=== PATIENT | male | born 1980 | race Caucasian/White ===

== ENCOUNTER 2017-04-15 18:45 | Emergency (ER) | payer OTHER ==
[~2017-04-15] VITALS: Ht 175.3 cm; Wt 104.5 kg
--- NOTE | 2017-04-15 19:12 | PHYS DOC ---
Past History Past Medical History: No Pertinent History Past Surgical History: No Surgical History Adult General Chief Complaint Chief Complaint: splinter left index finger HPI HPI This is a pleasant 37-year-old male with no other major medical problems who sustained a small visible foreign body in the index finger on the dorsum of his left hand. This injury occurred approximately 3 days ago likely a piece of plywood patient is noted increased localized swelling with serosanguineous clear drainage from the wound he is attempted to explore it with a small knife without much success removing the foreign body. At this juncture his is concerned he may becoming infected. Patient has normal pain with range of motion pain is localized at the site of wound. Patient's immunizations are up-to -date patient has normal other medical complaints at this time. Review of Systems Review of Systems Constitutional: Denies fever or chills [] Musculoskeletal: Denies back pain or joint pain [] Integument: Denies rash or skin lesions [] Neurologic: Denies headache, focal weakness or sensory changes [] Physical Exam Physical Exam Constitutional: Well developed, well nourished, no acute distress, non-toxic appearance. [] Cardiovascular:Heart rate regular rhythm, no murmur [] Lungs & Thorax: Bilateral breath sounds clear to auscultation [] Skin: Warm, dry, erythema to the area of wound on the radial aspect of the index finger on the left hand there is 1 cm x 1 cm area of erythema with mild soft tissue swelling small laceration noted self-inflicted Extremities: No tenderness, no cyanosis, no clubbing, ROM intact, no edema. [] Neurologic: Alert and oriented X 3, normal motor function, normal sensory function, no focal deficits noted. [] Psychologic: Affect normal, judgement normal, mood normal. [] EKG EKG [] Radiology/Procedures Radiology/Procedures [] X-ray of left hand read by me which taken at 1915 p.m. 04/07/2017 demonstrates small soft tissue swelling over the aspect of the radial aspect of the index finger. With no obvious foreign body no radiopaque foreign body no his air. Otherwise normal looking x-ray. Course & Med Decision Making Course & Med Decision Making Pertinent Labs and Imaging studies reviewed. (See chart for details) issue with soft tissue swelling after sustaining a small laceration and splinter into the radial aspect of the left index finger. This occurred 3-4 days ago. Patient has had localized swelling and redness after self-mutilation of the wound in an attempt to remove foreign body. No obvious foreign bodies x-ray felt the patient point patient was concerned had a retained foreign body causing localized infection. His is position and she was concerned about localized infection. After x-ray and wound exploration there is no obvious signs of foreign body based on physical exam there may be something very dentition retained patient was placed on antibiotics with close wound follow-up with primary care physician as well as referral to orthopedics in [id number] hours. Wound precautions given and patient was asked to return or any worsening symptoms or feel any question concerns. Impression: Soft tissue swelling, cellulitis, possible retained foreign body in the area of concern Disposition: Follow up PCP 24-48 hours antibiotics local wound management. Precautions given with no comparison at this time [] Dragon Disclaimer Dragon Disclaimer This chart was dictated in whole or in part using Voice Recognition software in a busy, high-work load, and often noisy Emergency Department environment. It may contain unintended and wholly unrecognized errors or omissions. Departure Departure: Impression: Primary Impression: Splinter in skin Disposition: HOME, SELF-CARE Condition: IMPROVED Referrals: HENRY RICK MD (PCP) Patient Instructions: Cellulitis, Wood Splinters Scripts Cephalexin (KEFLEX) 500 Mg Capsule 500 MG PO Q6HRS for 10 Days, #40 CAP Prov: JOSEPH VIEIRA MD 04/15/17 Naproxen (NAPROSYN) 500 Mg Tablet 1 TAB PO BID, #20 TAB 1 Refill Prov: JOSEPH VIEIRA MD 04/15/17 JOSEPH VIEIRA MD April 15, 2017 19:12
[2017-04-15] MEDS ORDERED: NAPR500T PO (19:25)
[2017-04-15] MEDS ORDERED: CEPH-264 PO (19:25)
[2017-04-15 19:28] VITALS: BP 134/73
[2017-04-15] MEDS ORDERED: IBUPROFEN 600 MG TABLET. PO ONE (19:30)
[2017-04-15] MEDS ORDERED: CEPHALEXIN 500 MG CAPSULE PO ONE (19:30)
--- NOTE | 2017-04-16 08:42 | RAD ---
Left hand 3 views. History: Possible foreign body, splinter, and radial aspect of left index finger, swelling and redness 3 views were taken of the left hand. There is no opaque foreign body. There is soft tissue swelling of the index finger. There is no osseous abnormality. 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 Impression: 1. Soft tissue swelling left index finger. 2. No opaque foreign body.
== END 2017-04-15 19:48 | disposition home or self-care (01) ==
LOC: ER 18:45
DX: L03.012 Cellulitis of left finger (principal); R22.32 Localized swelling, mass and lump, left upper limb
CPT/HCPCS: 73130; 99284